=== PATIENT | male | born 1960 | race Caucasian/White ===

== ENCOUNTER 2017-12-30 07:01 | Day surgery (SDC) | payer MEDICARE ==
[2017-12-30] MEDS ORDERED: BUPIVACAINE 0.5% W/EPI MPF 30 ML VIAL IVP ONE (07:02)
[2017-12-30] MEDS ORDERED: DEXAMETHASONE PRESERVATIVE FREE 10MG/ML VIAL IV ONE (07:02)
[2017-12-30] MEDS ORDERED: OXYCODONE/APAP 10MG-325MG TABLET PO ONE (07:02)
[2017-12-30] MEDS ORDERED: LIDOCAINE 1% W/EPI 1:200,000 MPF 30ML SQ ONE (07:02)
[2017-12-30] MEDS ORDERED: MIDAZOLAM HCL 2MG/2ML VIAL IV ONE (07:02)
[2017-12-30] MEDS ORDERED: LIDOCAINE 2% MDV (20MG/ML) 20ML VIAL IV ONE (07:02)
[2017-12-30] MEDS ORDERED: FENTANYL PF 100MCG/2ML VIAL IV ONE ×2 (07:02)
--- NOTE | 2017-12-30 15:47 | Operative Note - [place] ---
DATE OF SURGERY: 12/30/17 PREOPERATIVE DIAGNOSIS: CERVICAL SPONDYLOSIS WITHOUT MYELOPATHY, ICD-10 CODE = M47.812. OPERATION: RADIOFREQUENCY RHIZOTOMY LEFT CERVICAL FACETS, 3/4, 4/5, 5/6, AND 6/7. SURGEON: AMBER CASTILLO D.O. ANESTHESIA: LOCAL SEDATION. ANESTHESIA PROVIDER: ISABEL JEAN-BAPTISTE CRNA INDICATION: This patient presents with primary neck pain. Examination shows tenderness in the cervical spine. Range of motion does cause pain in the neck with extension. Diagnostic studies show extensive spondylitic change. A facet series with 75 to 85% pain control. Due to the failure of therapies and success of facet series, the patient presents today for rhizotomy for more long-term relief. PROCEDURE: Intravenous line, vital sign monitoring, IV sedation, prepped and draped in sterile technique. Patient position prone. Facet levels on the left at 3/4, 4/5, 5/6, and 6/7 marked and infiltrated. A 20-gauge rhizotomy cannula positioned, stimulation trials conducted. Rhizotomy burn performed. Local with anti-inflammatory into the sites. Topical antibiotics. Sterile dressing was applied. We will monitor and evaluate. cc: Dr. Geoffrey Vallecillo JOB NUMBER: [id number] MTDD
== END 2017-12-30 09:45 | disposition home or self-care (01) ==
LOC: SUR 07:01
PROVIDERS: ATTEND Pain Medicine Interventional Pain Medicine
DX: M47.812 Spondylosis without myelopathy or radiculopathy, cervical region (principal); I10 Essential (primary) hypertension
CPT/HCPCS: 64633; 64634 ×2; 01936; J1100; J3010